=== PATIENT | female | born 1955 | race Caucasian/White ===

== ENCOUNTER 2019-09-25 13:25 | Emergency (ER) | payer SELFPAY ==
--- NOTE | ~2019-09-25 | XR_ITS ---
XR foot LT 2V DATE: 09/25/2019 14:05 INDICATION: Fall 2 days ago. First toe pain TECHNIQUE: 2 views COMPARISON: None FINDINGS: No fracture or dislocation, periosteal reaction or bone destruction. Hammer toe deformitie s of second through fifth toes. IMPRESSION: No fracture or dislocation Reviewed, dictated and finalized at location B. IMPRESSION: No fracture or dislocation
--- NOTE | ~2019-09-25 | XR_ITS ---
XR tibia fibula LT 2V DATE: 09/25/2019 14:05 INDICATION: Fall 2 days ago. Upper tibia and fibula pain. TECHNIQUE: AP and lateral views COMPARISON: None FINDINGS: There is a linear oblique fracture of the proximal shaft of the fibula with approximately o ne cortical width anterior and no significant medial or lateral displacement. No tibial fracture. Nor mal alignment at the knee and ankle joints. IMPRESSION: Linear oblique minimally anteriorly displaced proximal fibular shaft fracture Reviewed, dictated and finalized at location B. IMPRESSION: Linear oblique minimally anteriorly displaced proximal fibular shaf t fracture
[2019-09-25 13:36] VITALS: BP 155/96; PULSE 106; RESP 16; O2SAT 98
--- NOTE | 2019-09-25 13:53 | ED.GENADULT ---
HPI - General Adult General Chief complaint: Extremity Injury, Lower Stated complaint: injury to left upper leg History of Present Illness HPI narrative: Rosalva is a 64-year-old woman with a past medical history of tobacco abuse that presented to clinic with pain in her left lower extremity. She slipped in the mud and fell 2 nights ago. She had immediate pain in the lower extremity just inferior and lateral to her left knee. She also pain in the left great toe. She did not hit her head or sustain any other injuries. Related Data Home Medications Medication Instructions Recorded Confirmed No Home Medications 09/25/19 09/25/19 Allergies Allergy/AdvReac Type Severity Reaction Status Date / Time No Known Allergies Allergy Verified 09/25/19 13:35 Review of Systems Constitutional: Constitutional: Reports no additional constitutional complaints Eyes: Eyes: Reports no additional eye complaints ENT: Reports system reviewed and no additional complaints, except as documented Cardiovascular: Cardiovascular: Reports no additional cardiovascular complaints Respiratory: Respiratory: Reports no additional respiratory complaints Gastrointestinal: Gastrointestinal: Reports no additional gastrointestinal complaints Genitourinary: Genitourinary: Reports no additional female genitourinary complaints Musculoskeletal: Musculoskeletal: Reports as per HPI Integumentary/Breasts: Skin/Breast: Reports system reviewed and no additional complaints, except as docu Neurologic: Reports system reviewed and no additional complaints, except as documented Psychiatric: Psychiatric: Reports no additional psychiatric complaints Exam Const: General: no acute distress and alert Orientation/consciousness: patient oriented x3 Limitations: No altered mental status HENMT: Other: normocephalic, atraumatic Eyes: Conjunctivae: conjunctivae normal Pupils: Equal, round and reactive pupils present Neck: Neck: normal visual inspection Chest: Chest palpation & inspection: normal inspection of the chest Resp: Effort & Inspection: normal respiratory effort, not labored, no retractions and no use of accessory muscles Cardio: Rate: regular rate Rhythm: regular rhythm GI: GI Palp: Yes Soft to palpation and No Tenderness to palpation present (GI) Skin: General skin exam: normal color Rashes: no rashes Neuro: General: moves all extremities Extrem: Other: tenderness to palpation 2 in inferior and lateral to the left knee. mild tenderness palpation of the left great toe. She was able to dorsiflex her left foot with 5/5 strength and sensation was intact in all dermatomes of the lower extremity. Psych: Mental Status: mental status grossly normal Course Course Emergency Course: Rosalva was seen and evaluated. Ordered radiographs of the tib-fib and left foot. Radiographs revealed: IMPRESSION: Linear oblique minimally anteriorly displaced proximal fibular shaft fracture. Foot radiographs were unremarkable. As she had a proximal fibula fracture she was placed in a Knee immobilizer splint and placed in non-weight bearing status. She was instructed to call her PCP RACIEL for an orthopedics consultation. Colin was sent to the pharmacy for breakthrough pain. Vital Signs Vital signs: Vital Signs Pulse Rate 106 H 09/25/19 13:36 Respiratory Rate 16 09/25/19 13:36 Blood Pressure 155/96 H 09/25/19 13:36 Pulse Oximetry 98 09/25/19 13:36 Pulse Rate 106 H 09/25/19 13:36 Respiratory Rate 16 09/25/19 15:13 Blood Pressure 155/96 H 09/25/19 13:36 Pulse Oximetry 98 09/25/19 13:36 Medical Decision Making Vital Signs Vital Signs: Vital Signs Pulse Rate 106 H 09/25/19 13:36 Respiratory Rate 16 09/25/19 13:36 Blood Pressure 155/96 H 09/25/19 13:36 Pulse Oximetry 98 09/25/19 13:36 Pulse Rate 106 H 09/25/19 13:36 Respiratory Rate 16 09/25/19 15:13 Blood Pressure 155/96 H 09/25/19 13:36 Pulse Oximetry 98
[2019-09-25 15:13] VITALS: RESP 16
== END 2019-09-25 15:14 | disposition home or self-care (01) ==
PROVIDERS: Emergency Provider Family Medicine; PCP Internal Medicine
DX: S82.402A Unspecified fracture of shaft of left fibula, initial encounter for closed fracture (principal); W01.0XXA Fall on same level from slipping, tripping and stumbling without subsequent striking against object, initial encounter
CPT/HCPCS: 73590; 73620; 99283; 99284; L1830

== ENCOUNTER 2020-11-06 10:33 | Emergency (ER) | payer SELFPAY ==
[2020-11-06 10:40] VITALS: BP 182/102; PULSE 92; RESP 20; TEMP 36.9; O2SAT 97
--- NOTE | 2020-11-06 11:26 | ED.GENADULT ---
HPI - General Adult General Chief complaint: Medical Clearance Stated complaint: Blood pressure high Source: patient Mode of arrival: ambulatory Limitations: no limitations History of Present Illness HPI narrative: Rosalva is a 65F with a PMH of tobacco abuse and HTN that presents to the ED from a work physical with elevated BP. She is asymptomatic and only came because she was instructed to. She had hypertension in the past that went away when she lost weight but it came back today. She denies any CP, SOB, headaches, lightheadedness, syncope and anuria. Related Data Allergies Allergy/AdvReac Type Severity Reaction Status Date / Time No Known Allergies Allergy Verified 09/25/19 13:35 Review of Systems Constitutional: Constitutional: Reports no additional constitutional complaints Eyes: Eyes: Reports no additional eye complaints ENT: Reports system reviewed and no additional complaints, except as documented Cardiovascular: Cardiovascular: Reports as per HPI Respiratory: Respiratory: Reports no additional respiratory complaints Gastrointestinal: Gastrointestinal: Reports no additional gastrointestinal complaints Genitourinary: Genitourinary: Reports no additional female genitourinary complaints Musculoskeletal: Musculoskeletal: Reports no additional musculoskeletal complaints Integumentary/Breasts: Skin/Breast: Reports system reviewed and no additional complaints, except as docu Neurologic: Reports system reviewed and no additional complaints, except as documented Psychiatric: Psychiatric: Reports no additional psychiatric complaints Exam Const: General: no acute distress and alert Orientation/consciousness: patient oriented x3 Limitations: No altered mental status HENMT: Head: normal to inspection Mouth: Yes Normal oral and palatal mucosa present Eyes: Conjunctivae: conjunctivae normal Pupils: Equal, round and reactive pupils present Neck: Neck: normal visual inspection Chest: Chest palpation & inspection: normal inspection of the chest Resp: Effort & Inspection: normal respiratory effort Auscultation: clear to auscultation bilaterally Cardio: Rate: regular rate Rhythm: regular rhythm GI: Auscultation: normal bowel sounds Skin: General skin exam: normal color Rashes: no rashes Neuro: General: patient oriented x3 and moves all extremities Extrem: General: normal to inspection Psych: Mental Status: mental status grossly normal Course Vital Signs Vital signs: Vital Signs Temperature 98.4 F 11/06/20 10:40 Pulse Rate 92 11/06/20 10:40 Respiratory Rate 20 11/06/20 10:40 Blood Pressure 182/102 H 11/06/20 10:40 Pulse Oximetry 97 11/06/20 10:40 Temperature 98.4 F 11/06/20 10:40 Pulse Rate 92 11/06/20 10:40 Respiratory Rate 20 11/06/20 10:40 Blood Pressure 182/102 H 11/06/20 10:40 Pulse Oximetry 97 11/06/20 10:40 Medical Decision Making Vital Signs Vital Signs: Vital Signs Temperature 98.4 F 11/06/20 10:40 Pulse Rate 92 11/06/20 10:40 Respiratory Rate 20 11/06/20 10:40 Blood Pressure 182/102 H 11/06/20 10:40 Pulse Oximetry 97 11/06/20 10:40 Temperature 98.4 F 11/06/20 10:40 Pulse Rate 92 11/06/20 10:40 Respiratory Rate 20 11/06/20 10:40 Blood Pressure 182/102 H 11/06/20 10:40 Pulse Oximetry 97 11/06/20 10:40 Discharge Plan Discharge Clinical Impression: Benign essential hypertension Patient Disposition: Home, Self-Care Condition: Stable Instructions: Chronic Hypertension (ED) Additional Instructions: Please return to the emergency department for any new, concerning, or worsening symptoms. Prescriptions: New amlodipine [Norvasc] 10 mg tablet 10 mg PO DAILY Qty: 14 RF: 0 Follow-up/Referrals: Stephane Hernandez MD [Primary Care Provider] -
[2020-11-06] MEDS: amLODIPine BESYLATE 5 MG TABLET 10 MG PO (11:31)
[2020-11-06 11:35] VITALS: BP 152/88
== END 2020-11-06 11:36 | disposition home or self-care (01) ==
PROVIDERS: Emergency Provider Family Medicine; PCP Internal Medicine
DX: I10 Essential (primary) hypertension (principal)
CPT/HCPCS: 99283; A9270

== ENCOUNTER 2021-10-14 15:33 | Emergency (ER) | payer OTHER, SELFPAY ==
--- NOTE | ~2021-10-14 | XR_ITS ---
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 TECHNIQUE: Anteroposterior and lateral views of the lumbar spine, and cone-down lateral view of the l umbosacral junction were obtained. COMPARISON: None. FINDINGS: Mild lower lumbar dextrocurvature. Sagittal alignment is normal. Chronic mild anterior wedging of T12 with 20% anterior vertebral body height loss unchanged since 2 view chest radiograph dated 03/25/2016 . Lumbar vertebral heights are normal. Disc heights are normal. Moderate to severe lower lumbar facet osteoarthritis at L4-L5 and L5-S1. Sacral arches are intact. 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 Bilateral hip joint spaces are relatively preserved. A few phleboliths in the pelvis . IMPRESSION: 1. Mild lumbar dextrocurvature with moderate to severe lower lumbar facet osteoarthritis. 2. 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 Reviewed, dictated and finalized at location B. IMPRESSION: 1. Mild lumbar dextrocurvature with moderate to severe lower lumbar facet osteo arthritis. 2. 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
[2021-10-14 15:42] VITALS: BP 131/80; PULSE 88; RESP 16; TEMP 37.1; O2SAT 98
--- NOTE | 2021-10-14 15:49 | ED.BACK ---
HPI - Back Pain/Injury General Chief Complaint: Back Pain/Injury Stated Complaint: Back Pain Time Seen by Provider: 10/14/21 16:30 Source: patient and RN notes reviewed Mode of arrival: ambulatory Limitations: no limitations History of Present Illness HPI Narrative: 66-year-old female presents concern for left low back pain. She reports on Wednesday she was helping to lift a heavy patient when she felt a sudden pain at the top of her left buttock. She reports the pain shoots down the left leg. She denies any direct trauma. She denies any history of back injury. She reports she has been using Salonpas, icy hot and ibuprofen. Reports the IcyHot helps a little bit. She denies loss of bowel or bladder function, perianal anesthesia, abdominal pain, fever, spine pain. She denies rash, fever, bruising, open skin MD elicited complaint: back pain Related Data Allergies Allergy/AdvReac Type Severity Reaction Status Date / Time No Known Allergies Allergy Verified 10/14/21 15:53 Review of Systems Review of Systems: CONSTITUTIONAL: Denies malaise, chills, sweats, or fever. CARDIOVASCULAR: Denies chest pain, palpitations, or edema. RESPIRATORY: Denies cough or dyspnea. GASTROINTESTINAL: Denies abdominal pain, nausea, vomiting, diarrhea, loss of bowel function GENITOURINARY: Denies dysuria, hematuria, frequency, loss of bladder function. SKIN: Denies rash or itching. MUSCULOSKELETAL: Reports left low back pain that radiates down the left leg NEUROLOGIC: Denies numbness, weakness, or headache. All systems reviewed & are unremarkable except as noted in HPI and below PMFSH Comments At time of signature, agree with nursing past medical, surgical, social and family history. There is no relevant family history pertinent to the presenting complaint Exam Narrative: GENERAL: Well-appearing, well-nourished, and in no acute distress. HEAD: Normocephalic, atraumatic. EYES: PERRLA and EOMI. NECK: Supple. No lymphadenopathy. CHEST: Clear to auscultation. No respiratory distress. HEART: Regular rate and rhythm. Distal pulses palpable and equal, cap refill <3 seconds ABDOMEN: Soft, nontender, nondistended, normal active bowel sounds, no palpable or pulsatile masses. No CVA tenderness MUSCULOSKELETAL: Normal range of motion and strength in all extremities; 5/5 strength with hip flexion and extension, dorsiflexion and extension, knee flexion and extension, plantar flexion and extension. Normal sensation in dermatomal distributions with sensitivity to light touch and pain. No midline back tenderness to palpation. No paraspinal tenderness. Transfers from sitting to standing. SKIN: Warm, dry, no rash. No ecchymosis, erythema, open wounds to back. NEURO: No focal deficits. Alert and oriented x3. Reflexes intact. Normal gait. PSYCH: Normal mood and affect Course Course Emergency Course: Patient is aware of diagnosis, understands and agrees to treatment plan. Anticipatory guidance given. Patient agrees to follow-up as directed and is aware of reasons to seek care at the emergency department. Portions of this record may have been created with voice recognition software Level of Care: Express Care Visit Vital Signs Vital signs: Vital Signs Temperature 98.8 F 10/14/21 15:42 Pulse Rate 88 10/14/21 15:42 Respiratory Rate 16 10/14/21 15:42 Blood Pressure 131/80 10/14/21 15:42 Pulse Oximetry 98 10/14/21 15:42 Temperature 98.8 F 10/14/21 15:42 Pulse Rate 88 10/14/21 15:42 Respiratory Rate 16 10/14/21 15:42 Blood Pressure 131/80 10/14/21 15:42 Pulse Oximetry 98 10/14/21 15:42 Reviewed. MDM - Back Pain/Injury MDM Narrative Medical decision making narrative: No risk factors or findings concerning for epidural abscess, diskitis, vertebral osteomyelitis, cord compression, cauda equina, vertebral fracture or bone malignancy, AAA, or pyelonephritis. Patient instructed to consider further imaging and workup through their primary
[2021-10-14 15:54] VITALS: BP 131/80; PULSE 88; RESP 16; TEMP 37.1; O2SAT 98
== END 2021-10-14 16:47 | disposition home or self-care (01) ==
PROVIDERS: Emergency Provider Nurse Practitioner
DX: M54.50 Low back pain, unspecified (principal); I10 Essential (primary) hypertension
CPT/HCPCS: 72100; 99213; G0463

== ENCOUNTER 2021-10-16 11:40 | Outpatient (CLI) | payer OTHER, SELFPAY ==
--- NOTE | ~2021-10-16 | DEXA_ITS ---
Bone Density Report Name: ISELA BELL Age: 66 Sex: Female Ethnicity: White Date of : 1955 Indication: postmenopausal; screening for osteoporosis; height loss; Referring Provider: Stephane Hernandez Study: Bone densitometry was performed. Exam Date: October 16, 2021 Accession number: [id number] Bone Density: Region BMD T-score Z-score Classification AP Spine(L1, L3, L4) 0.999 -0.5 1.3 Normal Femoral Neck (Left) 0.919 0.6 2.2 Normal Total Hip (Left) 0.940 0.0 1.2 Normal Femoral Neck (Right) 1.014 1.5 3.0 Normal Total Hip (Right) 0.983 0.3 1.6 Normal Femoral Neck Mean 0.966 1.1 2.6 Normal Total Hip Mean 0.961 0.2 1.4 Normal World Health Organization criteria for BMD impression classify patients as: Normal (T-score at or above -1.0), Osteopenia (T-score between -1.0 and -2.5), or Osteoporosis (T-score at or below -2.5). 10-year Fracture Risk: FRAX not reported because: All T-scores for Spine Total, Hip Total, Femoral Neck at or above -1.0 Clinical Information Provided by Patient: Smokes Has used the following medications: Vitamin D, Calcium Patient maximum height was 69 Menopause Age: 54 Drinks caffeinated beverages Onset of menses at age 14 Number of children 2 Impression: The patient has normal bone mass. The patient has risk factors, including: smoking. Discussion: BONE DENSITY IS ABOVE THE MINIMUM DESIRABLE LEVEL AT ALL SKELETAL SITES TESTED. This patient?s bone mineral density is above the minimum desirable level (T-score -1.0 or better) at all sites measured. The patient should follow a healthful lifestyle (good nutrition with adequate calcium and vitamin D, and appropriate weight-bearing exercise). Follow-Up: Consider repeating this study in 5 years or sooner if there is some new clinical indication. Reported by: Dr. Shola Dumas on 10/16/2021 12:32:00 PM. Reviewed, dictated and finalized at location [facility]
--- NOTE | ~2021-10-16 | MM_ITS ---
EXAMINATION: MM screening [facility] BI w iwona HISTORY: Screening TECHNIQUE: Craniocaudal and mediolateral oblique 3-D tomosynthesis images were obtained and synthetic 2-D images were generated. CAD analysis was submitted and interpreted. COMPARISON: Comparison to multiple prior studies sequentially, with oldest reviewed study dated 01/2012. BREAST PARENCHYMAL COMPOSITION: There are scattered areas of fibroglandular density. FINDINGS: There is no evidence of suspicious mass, calcification, or architectural distortion to sugg est malignancy in either breast. There has been no suspicious interval change. IMPRESSION: 1. No mammographic evidence of malignancy. 2. Recommend routine screening mammography in one year. BI-RADS Category 1: Negative Reviewed, dictated and finalized at location A.
== END 2021-10-16 11:41 | disposition home or self-care (01) ==
LOC: CHSIMG 11:44
PROVIDERS: PCP Internal Medicine; Visit Provider Internal Medicine
DX: Z12.31 Encounter for screening mammogram for malignant neoplasm of breast (principal); M81.0 Age-related osteoporosis without current pathological fracture
CPT/HCPCS: 77063; 77067; 77080

== ENCOUNTER 2021-10-23 12:04 | Outpatient (CLI) | payer OTHER, SELFPAY ==
--- NOTE | ~2021-10-23 | CT_ITS ---
EXAMINATION:CT lung screening DATE: 10/23/2021 12:21 INDICATION: Personal history of nicotine dependence. Current smoker with 40 pack year history. TECHNIQUE: Computed tomography (CT) of the chest was performed without intravenous contrast. Automate d exposure control and iterative reconstruction technique were employed. The dose-length product (DLP ) was 63.76 mGy-cm. COMPARISON: None. FINDINGS: There is mild scarring at the lung apices. A calcified right lung nodule is consistent with old granulomatous disease. There is a 3 mm nodule in right upper lobe. There is a 5 mm nodule at min or fissure. There is mild emphysema. No pleural effusion. The heart size is normal. No pericardial ef fusion. There is mild thoracic spondylosis. There is a chronic compression fracture of T12. IMPRESSION: 1. Lung-RADS category 2: Benign appearance or behavior. Continue annual screening with noncontrast lo w-dose chest CT in 12 months. Reviewed, dictated and finalized at location A. IMPRESSION: 1. Lung-RADS category 2: Benign appearance or behavior. Continue annual screeni ng with noncontrast low-dose chest CT in 12 months.
== END 2021-10-23 12:05 | disposition home or self-care (01) ==
LOC: CHSIMG 12:05
PROVIDERS: PCP Internal Medicine; Visit Provider Internal Medicine
DX: Z12.2 Encounter for screening for malignant neoplasm of respiratory organs (principal); Z87.891 Personal history of nicotine dependence
CPT/HCPCS: 71271

== ENCOUNTER 2023-11-12 13:45 | Emergency (ER) | payer MEDICARE, SELFPAY ==
--- NOTE | ~2023-11-12 | XR_ITS ---
XR wrist RT min 3V 11/12/2023 14:23 Indication: Right wrist pain Procedure: 3 views right wrist Comparison: No prior studies for comparison. Findings: There is a nondisplaced distal radial metaphyseal fracture. No other fracture or traumatic malalignment. Mild soft tissue swelling surrounding the fracture. Impression: 1: Nondisplaced distal radial metaphyseal fracture, best seen dorsally on the lateral view. Reviewed, dictated and finalized at location B. Impression: 1: Nondisplaced distal radial metaphyseal fracture, best seen dorsally on the l ateral view.
[2023-11-12 13:45] VITALS: BP 159/97; PULSE 87; RESP 16; TEMP 36.4; O2SAT 96
--- NOTE | 2023-11-12 13:49 | ED.EXTPRO ---
HPI - Extremity Problem General Chief complaint: Extremity Injury, Upper Stated complaint: arm pain Time Seen by Provider: 11/12/23 13:49 Source: patient Mode of arrival: ambulatory Limitations: no limitations History of Present Illness HPI Narrative: Patient is 68-year-old female with a fall last night onto her right wrist. She slipped in some mud. She has pain and swelling and bruising of the right wrist. MD Complaint: extremity pain, extremity swelling, joint swelling and joint paint Onset (ago): day(s) (1) Pain Consistency: constant Location: right, upper extremity and other ( Wrist) Severity scale (1-10): 5 Quality: sharp Radiation: proximal Relieving factors: cold therapy and immobilization Exacerbating factors: range of motion and palpation Associated symptoms: denies other symptoms Context: other ( fall on an outstretched right wrist) Related Data Allergies Allergy/AdvReac Type Severity Reaction Status Date / Time No Known Allergies Allergy Verified 10/14/21 15:53 Review of Systems Review of Systems: All systems reviewed & are unremarkable except as noted in HPI and below Constitutional: Constitutional: Reports no additional constitutional complaints Eyes: Eyes: Reports no additional eye complaints ENT: Reports system reviewed and no additional complaints, except as documented Cardiovascular: Cardiovascular: Reports no additional cardiovascular complaints Respiratory: Respiratory: Reports no additional respiratory complaints Gastrointestinal: Gastrointestinal: Reports no additional gastrointestinal complaints Genitourinary: Genitourinary: Reports no additional female genitourinary complaints Musculoskeletal: Musculoskeletal: Reports no additional musculoskeletal complaints Integumentary/Breasts: Skin/Breast: Reports system reviewed and no additional complaints, except as docu Neurologic: Reports system reviewed and no additional complaints, except as documented Psychiatric: Psychiatric: Reports no additional psychiatric complaints Endocrine: Endocrine: Reports no additional endocrine complaints Hematologic/Lymphatic: Hematologic/Lymphatic: Reports no additional hematologic/lymphatic complaints Allergic/Immunologic: Allergic/Immunologic: Reports no additional allergic/immunologic complaints Exam Const: General: healthy appearing Nutritional Appearance: well nourished Orientation/consciousness: patient oriented x3 HENMT: Head: normal to inspection Ears: external ears normal Face/Nose/Sinus: Normal external nose present Eyes: Conjunctivae: conjunctivae normal Pupils: Equal, round and reactive pupils present EOM: EOMs intact bilaterally Neck: Neck: normal visual inspection Chest: Chest palpation & inspection: normal inspection of the chest Resp: Effort & Inspection: normal respiratory effort and not labored Auscultation: clear to auscultation bilaterally Cardio: Rate: regular rate Rhythm: regular rhythm Heart sounds: no murmurs GI: Inspection: non-distended GI Palp: Yes Soft to palpation and No Tenderness to palpation present (GI) Auscultation: normal bowel sounds : General: Yes bladder normal to palpation Back/Spine/Pelvis: Back: no CVA tenderness Skin: General skin exam: normal color Rashes: no rashes Wounds: no wounds Other: Ecchymosis of the right wrist extensor surface Neuro: General: patient oriented x3 Cranial nerves: Yes Nystagmus not present Speech: normal speech Other: distal right hand is neurovascularly intact Extrem: General: abnormal to inspection Other: right wrist is swollen and tender and decreased range of motion due to pain and ecchymosis; distal hand is normal examination Psych: Mental Status: mental status grossly normal Affect: normal affect Attitude: cooperative Course Vital Signs Vital signs: Vital Signs Temperature 36.4 C 11/12/23 13:45 Pulse Rate 87 11/12/23 13:45 Respiratory Rate 16 11/12/23 13:45
[2023-11-12] MEDS: KETOROLAC (*BKC) 60 MG/2 ML VIAL IM (14:19)
[2023-11-12 15:11] VITALS: BP 154/74; PULSE 84; RESP 20; TEMP 36.8; O2SAT 94
== END 2023-11-12 15:11 | disposition home or self-care (01) ==
PROVIDERS: Emergency Provider Emergency Medicine; PCP Internal Medicine
DX: S52.591A Other fractures of lower end of right radius, initial encounter for closed fracture (principal); W01.0XXA Fall on same level from slipping, tripping and stumbling without subsequent striking against object, initial encounter
CPT/HCPCS: 29125; 73110; 96372; 99284; A4565; J1885